=== PATIENT | female | born 1980 | race Caucasian/White ===

== ENCOUNTER 2017-01-06 16:05 | Emergency (ER) | payer MEDICAID ==
[~2017-01-06] VITALS: Ht 180.3 cm; Wt 128.4 kg
[~2017-01-06 16:05] MED LIST: ALBUTEROL2 PUFFS/17 IN; BENZONATATE100 MG PO; DARVOCET-N6 EACH/PAK PO; DICLOFENAC 50MG50 MG PO; DOXYCYCLINE HY100 M3 PO; FLEXERIL10 MG PO; LODINE200 MG PO; LORTAB 5/500 501 TAB PO; MEDROL 4MG. DOSE4 MG PO; MOTRIN800 MG PO; NOMEDS; NOMEDS XX; NORCO 325 MG-101 TAB PO; PERCOCET 5/3251 EACH PO; PREDNISONE 10MG10 MG PO; PREDNISONE5 M1 PO; VICODIN 5/500 T1 TAB PO
--- NOTE | 2017-01-06 16:12 | Emergency Room Report ---
History of Present Illness Time Seen by [id number] Presenting Problem in Triage Pt arrived:Ambulance Stretcher Presenting Problem:POSSIBLE OBJECT IN RIGHT EYE. NOT SURE. SAW AN EYELASH Onset of symptoms date/time:/ or onset unknown for:MEDICAL HX UNKNOWN Treatment Prior to Arrival: UNIDENTIFIED EYE DROPS FROM HER MOTHER KEY ACCOUNT COORDINATOR Provided by:SELF Sepsis Risk Assessment: Temp: 98.3 B/P: 145/87 MAP: 106 Pulse: 90 Resp: 18 Recent fever? N Clinical Suspician of Infection? Y Mental Status: 1 - Regular (Normal Baseline) Sepsis Risk:Low Sepsis Risk Have you (or family members/close friends) recently traveled outside the [place]? N If Yes, where/when: Have you had exposure to infectious disease within the past month? TB? Other? Specify: Comment The patient comes in by ambulance with complaint of RIGHT eye pain, foreign body sensation. She says she woke up with this this morning after going to bed feeling fine last night. No injury or trauma. She does not wear contacts for visual correction, but wore a colored contact lens at couple of days ago for a couple of hours. She did not sleep in it. She says that the contacts out and they looked completely intact. She did use a drop of difluprednate, an eyedrops belonging to her mother, which did not have effect. She does have photophobia. ALLERGIES Coded Allergies: hydrocodone (From Lortab) (Intermediate, I-ITCHING 01/06/17) Home Medications Active Scripts DICLOFENAC SODIUM (Diclofenac 50MG) 50 MG PO BID #30 TAB Prov: 09/03/15 History Medical History General CAD? No Angina: No [place]: No Hypertension? No Hyperlipidemia? No CHF? No DVT? No PE? No COPD? Yes Asthma? No Anemia? No GERD? No Gastric ulcers? No GI Bleed? No Hernia? No Thyroid Problems? No Hypothyroidism? No CVA? No Seizures? No Diabetes? No Renal Insuffiency? No End Stage Renal Disease? No UTI? No Stones? Yes BPH? No GB Disease: No Nephritic Syndrome? No Asplenia? No Hepatitis? No Sickle Cell Disease? No Arthritis? No Migraines? No Cataracts? No Glaucoma? No MRSA? No HIV? No TB? No Anxiety? No Depression? No Cancer? No More? 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 Or More Family History Family Hx Diabetes Yes CAD Yes Hypertension Yes Hyperlipidemia No Cancer Yes TB No Social History Smoking Hx Smoker: Current Every Day Smoker Tobacco: Yes Type Cigarettes Packs/day < 1 Pack Alcohol Alcohol: No Review of Systems All Other Systems Reviewed and Negative Eyes see HPI Physical Exam Vital Signs Vital Signs Date Time Temp Pulse Resp B/P Pulse O2 O2 Flow FiO2 Ox Delivery Rate 01/06 1747 79 18 137/79 99 01/06 1607 98.3 90 18 145/87 97 General Appearance mild distress Eye Exam Comment Tetracaine relieved a substantial amount of pain in her right eye and she was able to open it after this was administered. Lids were everted and swept, no foreign bodies found. No foreign body seen on the cornea. Fluorescein staining performed with magnification. There is diffuse uptake in an oval pattern involving most of the cornea, but completely sparing the area over the pupil. Anterior chamber is clear. Pupils equal and reactive to light. Extraocular movements intact. Respiratory Status No: respiratory distress. Cardiovascular regular rate/rhythm, no peripheral edema Neurologic alert Medical Decision Making LABS/Meds/Orders Pt receiving controlled substance in ED? No Results/Orders Current Medication Orders Sig/Joel Start time Last Medication Dose Route Stop Time Status Admin Erythromycin 1 GM ONCE ONE 01/06 1745 CAN OP 01/06 174 Acetaminophen 0 .STK-MED ONE 01/06 1717 DC PO Acetaminophen 650 MG ONCE ONE 01/06 1715 DC 01/06 PO 01/06 171 1718 Miscellaneous 0 .STK-MED ONE 01/06 1612 DC XX Progress - 4:40 PM: Case discussed with Dr. Root. He is able to see the patient in his office now, but she lacks transportation. She is trying to find transportation to get there. Dr. Root LEFT his number and the patient may contact him when she obtains a ride and he will see her in his office. Departure Departure Disposition DC Home or Self Care(routine) Clinical Impression Primary Impression: Corneal injury due to contact lens Qualifiers: Laterality: right Qualified Code: H18.821 - Corneal disorder due to contact lens, right eye Condition STABLE Referrals BRANDI SANFORD (Family) Patient Instructions DI for Corneal Abrasion Additional Instructions Call Dr. Root at [phone] when you are ready to be seen at his office at: [address] [facility] ED Critical Care Critical Care No at 1829 Wear patch for 24 hrs, or as further instructed by Dr. Root. No driving with eye patch on. ED Critical Care Critical Care No
--- NOTE | 2017-01-06 16:12 | Emergency Room Report ---
History of Present Illness Time Seen by [id number] Presenting Problem in Triage Pt arrived:Ambulance Stretcher Presenting Problem:POSSIBLE OBJECT IN RIGHT EYE. NOT SURE. SAW AN EYELASH Onset of symptoms date/time:/ or onset unknown for:MEDICAL HX UNKNOWN Treatment Prior to Arrival: UNIDENTIFIED EYE DROPS FROM HER MOTHER HOT TOP LINER Provided by:SELF Sepsis Risk Assessment: Temp: 98.3 B/P: 145/87 MAP: 106 Pulse: 90 Resp: 18 Recent fever? N Clinical Suspician of Infection? Y Mental Status: 1 - Regular (Normal Baseline) Sepsis Risk:Low Sepsis Risk Have you (or family members/close friends) recently traveled outside the [place]? N If Yes, where/when: Have you had exposure to infectious disease within the past month? TB? Other? Specify: Comment The patient comes in by ambulance with complaint of RIGHT eye pain, foreign body sensation. She says she woke up with this this morning after going to bed feeling fine last night. No injury or trauma. She does not wear contacts for visual correction, but wore a colored contact lens at couple of days ago for a couple of hours. She did not sleep in it. She says that the contacts out and they looked completely intact. She did use a drop of difluprednate, an eyedrops belonging to her mother, which did not have effect. She does have photophobia. ALLERGIES Coded Allergies: hydrocodone (From Lortab) (Intermediate, I-ITCHING 01/06/17) Home Medications Active Scripts DICLOFENAC SODIUM (Diclofenac 50MG) 50 MG PO BID #30 TAB Prov: 09/03/15 History Medical History General CAD? No Angina: No [place]: No Hypertension? No Hyperlipidemia? No CHF? No DVT? No PE? No COPD? Yes Asthma? No Anemia? No GERD? No Gastric ulcers? No GI Bleed? No Hernia? No Thyroid Problems? No Hypothyroidism? No CVA? No Seizures? No Diabetes? No Renal Insuffiency? No End Stage Renal Disease? No UTI? No Stones? Yes BPH? No GB Disease: No Nephritic Syndrome? No Asplenia? No Hepatitis? No Sickle Cell Disease? No Arthritis? No Migraines? No Cataracts? No Glaucoma? No MRSA? No HIV? No TB? No Anxiety? No Depression? No Cancer? No More? 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 Family History Family Hx Diabetes Yes CAD Yes Hypertension Yes Hyperlipidemia No Cancer Yes TB No Social History Smoking Hx Smoker: Current Every Day Smoker Tobacco: Yes Type Cigarettes Packs/day < 1 Pack Alcohol Alcohol: No Review of Systems All Other Systems Reviewed and Negative Eyes see HPI Physical Exam Vital Signs Vital Signs Date Time Temp Pulse Resp B/P Pulse O2 O2 Flow FiO2 Ox Delivery Rate 01/06 1747 79 18 137/79 99 01/06 1607 98.3 90 18 145/87 97 General Appearance mild distress Eye Exam Comment Tetracaine relieved a substantial amount of pain in her right eye and she was able to open it after this was administered. Lids were everted and swept, no foreign bodies found. No foreign body seen on the cornea. Fluorescein staining performed with magnification. There is diffuse uptake in an oval pattern involving most of the cornea, but completely sparing the area over the pupil. Anterior chamber is clear. Pupils equal and reactive to light. Extraocular movements intact. Respiratory Status No: respiratory distress. Cardiovascular regular rate/rhythm, no peripheral edema Neurologic alert Medical Decision Making LABS/Meds/Orders Pt receiving controlled substance in ED? No Results/Orders Current Medication Orders Sig/Joel Start time Last Medication Dose Route Stop Time Status Admin Erythromycin 1 GM ONCE ONE 01/06 1745 CAN OP 01/06 174 Acetaminophen 0 .STK-MED ONE 01/06 1717 DC PO Acetaminophen 650 MG ONCE ONE 01/06 1715 DC 01/06 PO 01/06 171 1718 Miscellaneous 0 .STK-MED ONE 01/06 1612 DC XX Progress - 4:40 PM: Case discussed with Dr. Root. He is able to see the patient in his office now, but she lacks transportation. She is trying to find transportation to get there. Dr. Root LEFT his number and the patient may contact him when she obtains a ride and he will see her in his office. Departure Departure Disposition DC Home or Self Care(routine) Clinical Impression Primary Impression: Corneal injury due to contact lens Qualifiers: Laterality: right Qualified Code: H18.821 - Corneal disorder due to contact lens, right eye Condition STABLE Referrals BRANDI SANFORD (Family) Patient Instructions DI for Corneal Abrasion Additional Instructions Call Dr. Root at [phone] when you are ready to be seen at his office at: [address] [facility] ED Critical Care Critical Care No at 1829 Wear patch for 24 hrs, or as further instructed by Dr. Root. No driving with eye patch on. ED Critical Care Critical Care No
[2017-01-06 17:47] VITALS: BP 137/79
== END 2017-01-06 17:47 | disposition home or self-care (01) ==
LOC: ER 16:05
DX: H18.821 Corneal disorder due to contact lens, right eye (principal); Z72.0 Tobacco use